=== PATIENT | female | born 1955 | race Caucasian/White ===

== ENCOUNTER 2017-09-19 11:00 | Inpatient (IN) | payer OTHER ==
--- NOTE | 2017-09-11 14:56 | HP ---
Admitting History and Physical - Primary Care Physician PCP: Tunde Cummings - Admission Chief Complaint: Left breast cancer History of Present Illness: 61 year old nulliparous postmenapausal female with personal H/O left breast cancer S/P left breast wide excision senetenel node biopsy 06/2016 final pathology showed 1 negative lymph node and an invasive ductal carcinoma 1.1cm free margins. She underwent intra op radiation and no external beam RT. mammoprint was high risk and only underwent 5 cycles of chemotherapy. She refused all endocrine therapy. She then was found to have new palpable density left lower outer aspect of her breast. She underwent mammogram and US and underwent left US core bx 5:00 which showed recurrent invasive ductal carcinoma. History Source: Patient Limitations to Obtaining History: No Limitations - Past Medical History Dermatology: Yes: Basal Cell, Melanoma - Past Surgical History Additional Past Surgical History: Right rotator cuff repair WE of melanoma right trunk and LLE exc of sessile polyp - Smoking History Smoking history: Never smoked - Alcohol/Substance Use Hx Alcohol Use: No Home Medications - Allergies Allergies/Adverse Reactions: Allergies Allergy/AdvReac Type Severity Reaction Status Date / Time amoxicillin trihydrate Allergy Vomiting Verified 06/21/16 10:13 [From Augmentin] azithromycin [From Zithromax] Allergy Vomiting Verified 06/21/16 10:13 ciprofloxacin [From Cipro] Allergy Vomiting Verified 06/21/16 10:13 ciprofloxacin HCl Allergy Vomiting Verified 06/21/16 10:13 [From Cipro] potassium clavulanate Allergy Vomiting Verified 06/21/16 10:13 [From Augmentin] Quinolones Allergy Vomiting Verified 06/21/16 10:13 - Home Medications Home Medications: Ambulatory Orders Cholecalciferol (Vitamin D3) [Vitamin D] 2,000 unit PO DAILY capsule 08/26/13 Family Disease History - Family Disease History Family Disease History: CA: Grandparent (maternal-breast cancer), Father ( bladder cancer) Physical Examination Constitutional: Yes: Well Nourished Breast(s): Yes: Other (excellent cosmetic results left breast partial mastectomy and sentenl node bx, typical scarring changes underneath her left breast wide excision. some scarring changes are present lower outer aspect of left breast S/O bx which showed recurrent breast cancer no axillary or supraclavicular adenopathy bilaterally) Problem List - Problems (1) Recurrent cancer of left breast Code(s): C50.912 - MALIGNANT NEOPLASM OF UNSPECIFIED SITE OF LEFT FEMALE BREAST Assessment/Plan Left nipple sparing total mastectomy ,sentenel node biopsy possible axillary dissection , lymphoscintogram and reconstruction
[2017-09-11 16:02] VITALS: BMI 20.7
[2017-09-19] MEDS ORDERED: GENTAMICIN SO4 80 MG/2 ML VIAL ONE (12:57)
[2017-09-19] MEDS ORDERED: ceFAZolin SODIUM 1 GM VIAL ONE ×2 (12:57→16:59)
[2017-09-19] MEDS ORDERED: SUCCINYLCHOLINE CHLORIDE 200 MG/10 ML VIAL ONE (14:03)
[2017-09-19] MEDS ORDERED: PROPOFOL 20 ML ONE (14:03)
[2017-09-19] MEDS ORDERED: MIDAZOLAM HCL 2 MG/2 ML SINGLE DOSE VIAL ONE ×3 (14:06)
[2017-09-19] MEDS ORDERED: BUPIVACAINE HCL/PF (5 MG/ML) 30 ML VIAL IJ ONE (14:34)
[2017-09-19] MEDS ORDERED: DEXAMETHASONE SOD PHOSPHATE/PF 10 MG/ML SDV ONE (14:34)
[2017-09-19] MEDS ORDERED: ISOSULFAN BLUE 10 MG/ML VIAL SQ ONE (14:44)
[2017-09-19] MEDS ORDERED: LIDOCAINE HCL 1%, 10 MG/ML (20ML VIAL) ONE (14:45)
[2017-09-19] MEDS ORDERED: ONDANSETRON 4 MG/2 ML VIAL IVPUSH PRN (15:14)
[2017-09-19] MEDS ORDERED: ACETAMINOPHEN 1000 MG/100 ML VIAL (NON FORMULARY) IVPB ONE (15:15)
[2017-09-19] MEDS ORDERED: oxyCODONE HCL 5 MG TABLET PO PRN (15:15)
[2017-09-19] MEDS ORDERED: ZOLPIDEM TARTRATE 5 MG TABLET PO PRN (16:15)
[2017-09-19] MEDS ORDERED: ACETAMINOPHEN 325 MG TABLET (FP) PO PRN (16:15)
[2017-09-19] MEDS ORDERED: ONDANSETRON 4 MG/2 ML VIAL ONE (17:02)
[2017-09-19] MEDS ORDERED: DEXAMETHASONE SOD PHOSPHATE 4 MG/1 ML VIAL ONE (17:02)
[2017-09-19] MEDS ORDERED: ePHEDrine SULFATE 50 MG/1 ML AMPULE ONE (17:06)
[2017-09-19] MEDS ORDERED: HYDROmorphone HCL/PF 1 MG/ML VIAL (FOR PYXIS CHARGING ONLY) ONE ×2 (17:32→17:47)
[2017-09-19] MEDS ORDERED: ROCURONIUM BROMIDE 50 MG/5 ML VIAL ONE (17:33)
[2017-09-19] MEDS ORDERED: ACETAMINOPHEN INJECTION 100 ML IVPB ONE ×2 (18:35→19:11)
[2017-09-19] MEDS ORDERED: NALOXONE HCL 0.4 MG/ML VIAL ONE (19:30)
[2017-09-19] MEDS: CEFAZOLIN 1 GM/D5W 1 GM/50 ML BAG IVPB SCH (22:22)
[2017-09-19] MEDS: oxyCODONE HCL 10 MG SUSTAINED ACTING TABLET PO SCH (22:23)
[2017-09-19] MEDS: ONDANSETRON 4 MG/2 ML VIAL IVPUSH PRN (23:28)
[2017-09-20] MEDS ORDERED: ONDANSETRON *ODT* 4 MG TABLET SL ONE (03:22)
[2017-09-20] MEDS: CEFAZOLIN 1 GM/D5W 1 GM/50 ML BAG IVPB SCH ×2 (03:30→19:25)
[2017-09-20] MEDS: ONDANSETRON 4 MG/2 ML VIAL IVPUSH PRN (05:05)
[2017-09-20] MEDS: oxyCODONE HCL 5 MG TABLET PO PRN ×2 (06:14→20:10)
--- NOTE | 2017-09-20 07:54 | OP ---
DATE OF OPERATION: 09/19/2017 PREOPERATIVE DIAGNOSIS: Recurrent left breast cancer, 6 o'clock overlapping region. POSTOPERATIVE DIAGNOSIS: Recurrent left breast cancer, 6 o'clock overlapping region. PROCEDURE PERFORMED: Left breast total nipple-sparing mastectomy with repeat left axillary sentinel lymph node biopsy and direct implant reconstruction. PRIMARY SURGEON: Awais Gutierrez MD UPPER MARKER: MARIOLA Bill Primary surgeon for the direct implant reconstruction on the left is Dr. Awais Bear, with his assistant research scientist MARIOLA Aragon. COMPLICATIONS: There were no complications. INDICATIONS: Briefly, the patient is a 62-year-old, nulliparous, postmenopausal with female of [place] descent. She has a family history with her maternal grandmother, who had breast cancer, and maternal aunt had ovarian cancer. She was diagnosed with a left breast lower outer quadrant breast cancer back in April 2016, which was a high-grade infiltrating ductal cancer. She us genetic panel testing at that time, which was negative. Her cancer at that time was ER/CT positive and HER-II/JERI negative. She us a left breast partial mastectomy and sentinel lymph node biopsy, and had 1 negative sentinel node. Her cancer was 1.1 cm, and she had intraoperative radiation, with a slight mastopexy closure. MammaPrint genomic profile showed a high risk luminal type, and she underwent 5 out of 6 cycles of CMF chemotherapy and refused endocrine therapy. She had been followed closely, but then felt a density now towards the lower aspect of the left breast and ultrasound confirmed an 8-mm density, which was biopsied on August 17, 2017, and came back as a recurrent infiltrating ductal cancer. MRI just showed the recurrent cancer in the left breast 6 o'clock region. The right breast was negative. The patient was advised on undergoing a mastectomy because of the previous radiation. She was seen by Plastic Surgery preoperatively, and it was decided to go forth with a nipple-sparing technique, with a direct implant reconstruction. The patient also was advised on undergoing a repeat sentinel lymph node biopsy. DESCRIPTION OF PROCEDURE: The patient was brought in for the procedure on September 19, 2017. She first underwent lymphoscintigraphy at [facility] and was brought to the [facility] area. In the holding area, site verification was made and informed consent was obtained. She was marked preoperatively by the plastic surgeon. The patient brought into the operating room and laid on the OR table in the supine position. Venodynes were placed on the lower extremities prior induction. She received 1 gram of Ancef prior to incision. The left breast was sterilely prepped and draped, along with the right, to allow for symmetry by Plastic Surgery. We did inject Lymphazurin Blue around the subareolar position. Massage was instituted. An incision was made just below the hair-bearing area of the left axilla. Although the radioactive dye did not travel well, the blue dye traveled easily to a blue node in the level 1 region in the left axilla and had a 10-second gamma count of 98. There was another specimen which was blue which was also sent as "sentinel lymph node number 2." Both of these were sent for frozen section, but only the first specimen was a lymph node. The second was just fibrous tissue. It was benign on frozen section. There were no other blue or hot nodes found. At this point, a nipple-sparing mastectomy was performed through an inframammary incision. About a 10-cm inframammary incision was made and the skin edges everted and the breast was retracted inferiorly using Charles clamps. The skin flap was raised using the PEAK radiofrequency device. We maintained thin flaps, especially inferiorly, since her cancer was fairly anterior, and the skin flap was raised superiorly to the level of the clavicle, medially to the level of the sternum, laterally to the level of the latissimus, and inferiorly below the level of the inframammary fold. The breast was taken down off the pectoralis major muscle from inferomedial to superolateral and completely removed intact. It was oriented with a long lateral suture and short superior suture, and weighed to allow for appropriate cosmetic result. A radiograph of the breast did not show the clip in question. A separate anterior margin was taken and was oriented with a suture to ymnor the biopsy cavity side, and sent separately in formalin as a specimen. On further inspection in the subcutaneous region, I did find an area of some scarring right underneath the needle biopsy site and on exploration the clip was in the subcutaneous tissue just underneath the skin, and this tissue was removed with the clip within it. Specimen radiograph showed the clip and this tissue was sent separately as "specimen with clip." A small separate sliver of tissue, just underneath this, anterior, underneath the skin, was sent separately as "clip anterior margin." There was also a small subcutaneous nodule felt, which was sent separately as "subcutaneous nodule." All of these were sent separately in formalin. Hemostasis was achieved. A retroareolar biopsy was taken which was negative. So the nipple was spared. At this point Dr. Bear became the primary surgeon and performed the left breast direct implant reconstruction. A subpectoral implant was placed and AlloDerm was sutured into the inferolateral aspect of the pectoralis major muscle to allow for the direct implant reconstruction. We did use the SPY skin perfusion device, which showed good perfusion of the skin. All wounds will be closed separately by Plastic Surgery. Two Ryne drains were placed around the left implant, one superiorly and one inferiorly, and brought through separate stab incisions in the lateral skin flap and secured in place using 3-0 nylon surgical. The drains were placed under bulb suction. The axillary wound was also closed by Plastic Surgery. The patient was extubated at the end of the case and placed in a surgical bra. She will be recovered and admitted postoperatively for postoperative pain and wound management. She did have a preoperative pectoral block placed to reduce postoperative pain. All sponge and needle counts were correct at the end of the case. Estimated blood loss was about 100 mL. She was hemodynamically stable throughout. AWAIS GUTIERREZ M.D. [id number]
[2017-09-20] MEDS: HEPARIN NA (PORCINE) 5,000 UNITS/ML 1ML VIAL SQ SCH ×2 (08:00→19:52)
[2017-09-20] MEDS ORDERED: ONDANSETRON *ODT* 4 MG TABLET SL PRN (08:44)
[2017-09-20 08:45] LABS: HEMATOCRIT 39.5 % (32.4-45.2); HEMOGLOBIN 13.7 GM/dl (10.7-15.3); MCH 30.8 pg (25.7-33.7); MCHC 34.8 g/dl (32.0-36.0); MEAN CELL VOLUME 88.7 fl (80-96); MEAN PLT VOLUME 7.1 fl (7.5-11.1); PLATELET COUNT 319 K/MM3 (134-434); RBC 4.46 M/mm3 (3.60-5.2); RDW 12.2 % (11.6-15.6); WHITE BLOOD COUNT 14.3 K/mm3 (4.0-10.8)
--- NOTE | 2017-09-20 08:51 | PN ---
Progress Note, Physician Chief Complaint: Recurrent left breast cancer S/P left total mastectomy sentenel node biopsy implant and alloderm reconstruction POD #1 History of Present Illness: Patient is OOB eating small amounts nausea from oxycodone but somewhat better this am - Current Medication List Current Medications: Active Medications Acetaminophen (Tylenol -) 650 mg PO Q4H PRN PRN Reason: FEVER Diazepam (Valium -) 5 mg PO BID [facility] Fentanyl (Sublimaze Injection -) 50 mcg IVPUSH [id number] PRN PRN Reason: PAIN-PACU ORDER X 4 DOSES ONLY Heparin Sodium (Porcine) (Heparin -) 5,000 unit SQ BID@0800,2000 [facility] Lactated Ringer's (Lactated Ringers Solution) 1,000 mls @ 75 mls/hr IV ASDIR GLO Dextrose/Sodium Chloride (D5-1/2ns -) 1,000 mls @ 100 mls/hr IV ASDIR [facility] Cefazolin Sodium (Ancef 1 Gm Premixed Ivpb -) 1 gm in 50 mls @ 100 mls/hr IVPB Q6H [facility] Last Admin: 09/20/17 03:30 Dose: 100 mls/hr Non-Formulary Medication (Digestive 8/L.Acidoph/Pectin [Digestive Enzymes Tablet ]) 1 each PO DAILY [facility] Ondansetron HCl (Zofran Injection) 4 mg IVPUSH Q6H PRN PRN Reason: NAUSEA AND/OR VOMITING Last Admin: 09/20/17 05:05 Dose: 4 mg Oxycodone HCl (Roxicodone -) 5 mg PO Q3H PRN PRN Reason: PAIN LEVEL 1-5 Last Admin: 09/20/17 06:14 Dose: 5 mg Oxycodone HCl (Roxicodone -) 10 mg PO Q3H PRN PRN Reason: PAIN LEVEL 6-10 Oxycodone HCl (Oxycontin -) 10 mg PO BID [facility] Stop: 09/22/17 15:16 Last Admin: 09/19/17 22:23 Dose: 10 mg Tramadol HCl (Ultram -) 50 mg PO Q8H PRN PRN Reason: PAIN LEVEL 4 - 6 Zolpidem Tartrate (Ambien -) 5 mg PO HS PRN PRN Reason: Insomnia - Objective Vital Signs: Vital Signs Temperature 98.6 F 09/20/17 06:00 Pulse Rate 76 09/20/17 06:00 Respiratory Rate 18 09/20/17 08:13 Blood Pressure 120/60 09/20/17 06:00 O2 Sat by Pulse Oximetry (%) 99 09/20/17 08:13 Constitutional: Yes: No Distress Breast(s): Yes: Other (Left skin flap viable tegaderm in place incision intact, minimal echymosis lateral breast , no Signs of infection, mary drains funtioning well) Problem List - Problems (1) Recurrent cancer of left breast Code(s): C50.912 - MALIGNANT NEOPLASM OF UNSPECIFIED SITE OF LEFT FEMALE BREAST Assessment/Plan cont IV antibiotic spirometry scds in bed Valium BID for pain Tramadol Q8 hour for pain prepare for discharge tomorrow
[2017-09-20] MEDS: diazePAM 5 MG TABLET PO SCH ×2 (09:44→23:09)
[2017-09-20] MEDS: traMADol HCL 50 MG TABLET PO PRN ×3 (09:44→23:09)
[2017-09-20] MEDS: oxyCODONE HCL 10 MG SUSTAINED ACTING TABLET PO SCH ×2 (10:00→22:31)
--- NOTE | 2017-09-20 10:58 | OP ---
DATE OF OPERATION: 09/19/2017 SURGEON: Awais Bear MD FRICTION PAINT MACHINE TENDER SURGEON: Matthias Denis PA-C This is a combined dictation with Dr. Awais Cummings for a left breast reconstruction. Dr. Cummings will dictate his portion under separate cover. This is the standard dictation for the left breast reconstruction only. OPERATIVE INDICATION: Patient was brought to the operating room by Dr. Awais Cummings for left breast mastectomy for recurrent carcinoma. The patient elected to undergo reconstruction with an implant, and the risks and benefits, surgical versus nonsurgical alternatives, as well as material complications have been described to the patient on multiple occasions preoperatively. The standard dictation applies for the left breast only. The patient had Contour Large Perforated AlloDerm Select Tissue Matrix placed into the left breast. She had a Natrelle Inspira Soft Touch breast implant, style SSF 520 mL placed. She had SPY intraoperative angiogram on the left breast, which showed good blood flow to the skin and nipple areolar complex. Dr. Cummings will dictate the rest of the procedure. There was no operation on the right breast. This is a left breast only reconstruction. OPERATIVE PROCEDURE IN DETAIL: The patient was taken to the operating room. After induction of general anesthesia in the supine position, both arms were extended and padded. Venodyne boots were placed. The entire chest wall was painted with ChloraPrep solution over its entire extent, and sterile drapes were placed in the usual fashion. The markings, which had been made in the standing position preoperatively, were reoutlined with the patient's knowledge. Time-out procedure was performed. Attention was turned by Dr. Cummings to the mastectomies. Left inframammary incisions were made and Dr. Cummings performed mastectomies. This will be dictated under separate cover. Upon completion of the mastectomy, the wounds were copiously irrigated and attention was turned to the left breast. A subpectoral dissection was begun on the right breast, superiorly from the second rib, medially to the sternal fibers, and down to the inframammary fold, elevating the pectoralis major muscle from its insertion. At this point, an 8.0 x 16.0 sheet of Contour Large Perforated AlloDerm Select Tissue Matrix was brought into the field and sutured superiorly along the pectoralis major muscle after rehydration. This was carried along the lateral mammary fold and down the side of the breast reconstruction. At this point, a [employer] myMedScoreira Soft Touch breast implant, style SSF 520 mL implant was chosen. The left breast tissue removed was gm. This implant was placed and then sutured with 3-0 Vicryl suture continued along the inframammary fold, completely covering the implant itself. After the implants were in place, the patient was injected with 10 mL of Isocyanide green dye and the Spy imaging system was brought into the field. The skin flowed to the left breast and the nipple areolar complex, and the entire skin flaps were evaluated and seen to be viable with good blood flow. A Patrice-Hughes drain was brought out through separate stab wound laterally. The Smart Infuser pump catheter was inserted medially and into the subpectoral position. The wound was closed symmetrically using 3-0 PDS suture on the deep tissue, 3-0 in a deep dermal fashion, and 4-0 in a subcuticular fashion. The wound was dressed sterilely with Mastisol and Steri-Strips with a surgical bra and a compression strap. The patient tolerated the procedure well. She was awakened, extubated and transferred to the recovery room in satisfactory condition. The addictions counselor assistant was present during the entire portion of the operation and closure. AWAIS BEAR M.D. [id number]
[2017-09-20] MEDS: LACTATED RINGERS SOLUTION 1,000 ML IV SCH (19:27)
[2017-09-20] MEDS: DEXTROSE 5%-0.45% SALINE 1,000 ML IV SCH (19:27)
[2017-09-20] MEDS: CEPHALEXIN MONOHYDRATE 500 MG CAPSULE (UD) PO SCH (21:27)
[2017-09-21 06:22] VITALS: BP 120/69; PULSE 75; TEMP 98
[2017-09-21] MEDS: traMADol HCL 50 MG TABLET PO PRN (07:42)
[2017-09-21] MEDS: HEPARIN NA (PORCINE) 5,000 UNITS/ML 1ML VIAL SQ SCH (07:50)
[2017-09-21] MEDS: oxyCODONE HCL 10 MG SUSTAINED ACTING TABLET PO SCH (09:24)
[2017-09-21] MEDS: diazePAM 5 MG TABLET PO SCH (09:24)
[2017-09-21] MEDS: CEPHALEXIN MONOHYDRATE 500 MG CAPSULE (UD) PO SCH (09:24)
--- NOTE | 2017-09-21 10:05 | DS ---
Physical Examination Vital Signs: Vital Signs Temperature 98.0 F 09/21/17 06:00 Pulse Rate 75 09/21/17 06:00 Respiratory Rate 18 09/21/17 08:12 Blood Pressure 120/69 09/21/17 06:00 O2 Sat by Pulse Oximetry (%) 97 09/21/17 08:12 Constitutional: Yes: No Distress Breast(s): Yes: Other (Left breast flap viable incision intact steristrips in place mary drain functioning well) Labs: CBC, BMP 09/20/17 08:15 Discharge Summary Reason For Visit: LT CA Condition: Good - Instructions Diet, Activity, Other Instructions: Post Operative Instructions - [facility] We hope your recovery will be uneventful. For those of you who have been given general anesthesia, there is a possibility you might have some lightheadedness and possibly nausea. It is important that each patient, especially those who have had general anesthesia, follow these instructions, please: 1. Do NOT operate a motor vehicle for 24 hours. 2. Do NOT drink any alcoholic beverages for 24 hours. 3. Do NOT take any sedatives, narcotics, or tranquilizers for 24 hours unless specifically ordered by your surgeon. 4. Do NOT undertake any strenuous exercise or outside activity for 24 hours unless specifically permitted by your surgeon. 5. Eat light foods that are easy to digest. If you have any problems with nausea and vomiting, lie down and rest. If it continues, call your surgeon. 6. Call your surgeon AT ONCE if you have problems with: a. Bleeding b. Urinating c. Excessive pain or drainage d. Numbness If any problems occur, call your physician first. If you cannot reach him/her, call the Ambulatory Surgery Unit at [phone], or the Emergency Room at . Follow up with Drs. Cummings / Liana in 7 days. Medication: Vicodin E-S OR Percocet 1-2 tablets every 4-6 hrs as needed for 5-7 days. Wound Care: Keep wound dry and clean for 48 hours. You may remove the dressing after 48 hours and may shower. Keep steri-strips in place until follow-up appointment No heavy lifting or strenuous activities. BREAST SURGERY INSTRUCTIONS Will Cummings M.D., KAYLI Cummings M.D., FACS Brennan Gaines M.D., FACS 1. Please call the office at to make a follow up appointment with your surgeon. This number can be also used for any urgent issues you may have. 2. Call us immediately if any of the following occur: *Bleeding from the incision or drain site (a small amount is normal) *Fever or chills *Redness and worsening tenderness around the surgical site *Drainage of pus or fluid from the incision or drain site 3. You may change the surgical dressing two (2) days after your surgery, and may shower then. If you have drains, you may shower after they have been removed, until then take a sponge bath. 4. It is normal for there to be some bruising and tenderness around the surgical site, and the breast may also be firm in this area. 5. Please wear a comfortable bra (sports or surgical bra) all day and all night until your first follow-up visit with your surgeon. 6. The pain medicine you have been prescribed may make you constipated; make sure you drink plenty of water. You may use an over the counter laxative if needed. 7. You may resume your normal diet after surgery, although you may want to avoid rich foods for the first twenty-four (24) hours after surgery. Alcoholic drinks should be avoided while taking the prescribed pain medicine. 8. You may resume normal activities as long as there is no discomfort, but do not do upper body exercises until after your follow-up appointment. Do not lift anything heavier than a large phone book. You may resume driving once you have stopped taking the prescribed pain medicine and feel comfortable doing arm movements. WEAR BRA, NO SHOWER, EMPTY AND RECORD MARY OUTPUT TWO TO THREE TIMES DAILY Referrals: Tunde Cummings MD [Staff Physician] - Prieto Bear MD [Staff Physician] - Disposition: HOME - Home Medications Comprehensive Discharge Medication List: Ambulatory Orders Cholecalciferol (Vitamin D3) [Vitamin D] 2,000 unit PO DAILY capsule 08/26/13 Calcium Carb/Vitamin D3/Vit K1 [Citracal Soft Chew] 1 each PO DAILY 09/11/17 Digestive 8/L.acidoph/Pectin [Digestive Enzymes Tablet] 1 each PO DAILY Cefadroxil 500 mg PO BID #20 capsule 09/21/17 Diazepam [Valium] 5 mg PO Q8H PRN #20 tablet MDD 3 09/21/17 Oxycodone HCl/Acetaminophen [Percocet 5-325 mg Tablet] 1 - 2 tab PO Q6H PRN #20 tab MDD 6 09/21/17
--- NOTE | 2017-09-21 10:07 | PN ---
Progress Note, Physician Chief Complaint: recurrent left breast cancer S/P left total mastectomy sentenel node biopsy implant alloderm POD #2 - Current Medication List Current Medications: Active Medications Acetaminophen (Tylenol -) 650 mg PO Q4H PRN PRN Reason: FEVER Last Admin: 09/21/17 09:24 Dose: 650 mg Cephalexin HCl (Keflex -) 500 mg PO BID [facility] Last Admin: 09/21/17 09:24 Dose: 500 mg Diazepam (Valium -) 5 mg PO BID [facility] Last Admin: 09/21/17 09:24 Dose: 5 mg Fentanyl (Sublimaze Injection -) 50 mcg IVPUSH [id number] PRN PRN Reason: PAIN-PACU ORDER X 4 DOSES ONLY Heparin Sodium (Porcine) (Heparin -) 5,000 unit SQ BID@0800,2000 [facility] Last Admin: 09/21/17 07:50 Dose: 5,000 unit Lactated Ringer's (Lactated Ringers Solution) 1,000 mls @ 75 mls/hr IV ASDIR [facility] Last Admin: 09/20/17 19:27 Dose: Not Given Dextrose/Sodium Chloride (D5-1/2ns -) 1,000 mls @ 100 mls/hr IV ASDIR [facility] Last Admin: 09/20/17 19:27 Dose: Not Given Non-Formulary Medication (Digestive 8/L.Acidoph/Pectin [Digestive Enzymes Tablet ]) 1 each PO DAILY [facility] Ondansetron HCl (Zofran Injection) 4 mg IVPUSH Q6H PRN PRN Reason: NAUSEA AND/OR VOMITING Last Admin: 09/20/17 05:05 Dose: 4 mg Ondansetron HCl (Zofran Odt -) 4 mg SL Q8H PRN PRN Reason: NAUSEA AND/OR VOMITING Oxycodone HCl (Roxicodone -) 5 mg PO Q3H PRN PRN Reason: PAIN LEVEL 1-5 Last Admin: 09/20/17 20:10 Dose: 5 mg Oxycodone HCl (Roxicodone -) 10 mg PO Q3H PRN PRN Reason: PAIN LEVEL 6-10 Last Admin: 09/21/17 09:23 Dose: 10 mg Oxycodone HCl (Oxycontin -) 10 mg PO BID [facility] Stop: 09/22/17 15:16 Last Admin: 09/21/17 09:24 Dose: 10 mg Tramadol HCl (Ultram -) 50 mg PO Q8H PRN PRN Reason: PAIN LEVEL 4 - 6 Last Admin: 09/21/17 07:42 Dose: 50 mg Zolpidem Tartrate (Ambien -) 5 mg PO HS PRN PRN Reason: Insomnia - Objective Vital Signs: Vital Signs Temperature 98.0 F 09/21/17 06:00 Pulse Rate 75 09/21/17 06:00 Respiratory Rate 18 09/21/17 08:12 Blood Pressure 120/69 09/21/17 06:00 O2 Sat by Pulse Oximetry (%) 97 09/21/17 08:12 Constitutional: Yes: No Distress (Left breast flap viable no infection steristrips in place tegaderm in place mary srains functioning) Labs: CBC, BMP 09/20/17 08:15 Problem List - Problems (1) Recurrent cancer of left breast Code(s): C50.912 - MALIGNANT NEOPLASM OF UNSPECIFIED SITE OF LEFT FEMALE BREAST Assessment/Plan Dishcarge patient home today follow up one week Dr Cummings and Dr Bear Cefadroxil bid 10 days, Percocet and valium prn
--- NOTE | 2017-09-21 13:07 | OPR ---
DATE OF OPERATION: 09/19/2017 SURGEON: Awais Bear MD DECKHAND SURGEON: Matthias Denis PA-C This is a combined dictation with Dr. Awais Cummings for a left breast reconstruction. Dr. Cummings will dictate his portion under separate cover. OPERATIVE INDICATION: Patient was brought to the operating room by Dr. Awais Cummings for left breast mastectomy for recurrent carcinoma. The patient elected to undergo reconstruction with an implant, and the risks and benefits, surgical versus nonsurgical alternatives, as well as material complications have been described to the patient on multiple occasions preoperatively. OPERATIVE PROCEDURE IN DETAIL: The patient was taken to the operating room. After induction of general anesthesia in the supine position, both arms were extended and padded. Venodyne boots were placed. The entire chest wall was painted with ChloraPrep solution over its entire extent, and sterile drapes were placed in the usual fashion. The markings, which had been made in the standing position preoperatively, were reoutlined with the patient's knowledge. Time-out procedure was performed. Attention was turned by Dr. Cummings to the mastectomies. Left inframammary incisions were made and Dr. Cummings performed mastectomies. This will be dictated under separate cover. Upon completion of the mastectomy, the wounds were copiously irrigated and attention was turned to the left breast. A subpectoral dissection was begun on the right breast, superiorly from the second rib, medially to the sternal fibers, and down to the inframammary fold, elevating the pectoralis major muscle from its insertion. At this point, an 8.0 x 16.0 sheet of Contour Large Perforated AlloDerm Select Tissue Matrix was brought into the field and sutured superiorly along the pectoralis major muscle after rehydration. This was carried along the lateral mammary fold and down the side of the breast reconstruction. At this point, a Natrelle Inspira Soft Touch breast implant, style SSF 520 mL implant was chosen. The left breast tissue removed was 573 gm. This implant was placed and then sutured with 3-0 Vicryl suture continued along the inframammary fold, completely covering the implant itself. After the implants were in place, the patient was injected with 10 mL of Isocyanide green dye and the Spy imaging system was brought into the field. The skin flowed to the left breast and the nipple areolar complex, and the entire skin flaps were evaluated and seen to be viable with good blood flow. A Patrice-Hughes drain was brought out through separate stab wound laterally. The Smart Infuser pump catheter was inserted medially and into the subpectoral position. The wound was closed symmetrically using 3-0 PDS suture on the deep tissue, 3-0 in a deep dermal fashion, and 4-0 in a subcuticular fashion. The wound was dressed sterilely with Mastisol and Steri-Strips with a surgical bra and a compression strap. The patient tolerated the procedure well. She was awakened, extubated and transferred to the recovery room in satisfactory condition. The statistical assistant was present during the entire portion of the operation and closure. AWAIS BEAR M.D. [id number]
--- NOTE | 2017-09-22 16:05 | PATH ---
Surgical Pathology Report Patient Name: NOHEMY VILLALOBOS Med. Rec. #: [id number] /Age/Gender: 1955 (Age: 62) / F Account: [id number] Location: [facility] Taken: 09/19/2017 Received: 09/19/2017 Reported: 09/22/2017 Physicians: Tunde Cummings M.D. Specimen(s) Received A: LEFT BREAST SENTINEL NODE. FS#1 B: LEFT BREAST SENTINEL NODE. FS#2 C: LEFT BREAST RETROAREOLAR. FS#3 D: LEFT BREAST MASTECTOMY E: LEFT BREAST ANTERIOR MARGIN F: LEFT BREAST SUBCUTANEOUS NODULE G: LEFT BREAST ANTERIOR CLIP MARGIN H: LEFT BREAST SPECIMEN WITH CLIP Clinical History Invasive left breast 6:00 anterior recurrence Intraoperative Consult Diagnosis A. Left breast sentinel node #1, frozen section: One negative lymph node. B. Left breast sentinel node #2, frozen section: Fibrofatty tissue having foreign body granulomas. No lymph node tissue is identified. C. Left retroareolar, frozen section: Negative for malignancy. Kadie Kim M.D., 09/20/17 Final Diagnosis A. LEFT AXILLARY SENTINEL NODE #1, EXCISION: ONE BENIGN LYMPH NODE (0/1) BY STANDARD HEMATOXYLIN AND EOSIN STAIN (MULTIPLE LEVELS EXAMINED). B. LEFT AXILLARY SENTINEL NODE #2, EXCISION: BENIGN FIBROFATTY TISSUE WITH CHANGES CONSISTENT WITH PRIOR EXCISION SITE NO LYMPH NODE IDENTIFIED. C. LEFT BREAST, RETROAREOLAR BIOPSY: BENIGN BREAST TISSUE WITH FIBROCYSTIC CHANGES INCLUDING USUAL DUCTAL HYPERPLASIA (UDH), STROMAL FIBROSIS, AND DUCTAL DILATATION. D. LEFT BREAST, NIPPLE SPARING MASTECTOMY: BENIGN BREAST TISSUE WITH FIBROCYSTIC CHANGES INCLUDING USUAL DUCTAL HYPERPLASIA (UDH), STROMAL FIBROSIS, DUCTAL DILATATION, AND CYSTIC APOCRINE METAPLASIA. CHANGES CONSISTENT WITH PRIOR EXCISION SITE PRESENT. NO CARCINOMA IDENTIFIED. E. LEFT BREAST, ANTERIOR MARGIN, EXCISION: POORLY DIFFERENTIATED INVASIVE DUCTAL CARCINOMA, JAVIER GRADE 3 OF 3 (TUBULE SCORE 3 OF 3, NUCLEAR GRADE 3 OF 3, MITOTIC SCORE 3 OF 3, TOTAL 9 OF 9), MEASURING 0.4 CM IN GREATEST DIMENSION, AND PRESENT IN ONE OF 4 BLOCKS. INVASIVE CARCINOMA FOCALLY ABUTS THE ANTERIOR MARGIN. NO LYMPH VASCULAR INVASION IDENTIFIED. NO DUCTAL CARCINOMA IN SITU (DCIS) IDENTIFIED. F. LEFT BREAST, SUBCUTANEOUS NODULE, EXCISION: POORLY DIFFERENTIATED INVASIVE DUCTAL CARCINOMA, JAVIER GRADE 3 OF 3 (TUBULE SCORE 3 OF 3, NUCLEAR GRADE 3 OF 3, MITOTIC SCORE 3 OF 3, TOTAL 9 OF 9), MEASURING 0.6 CM IN GREATEST DIMENSION (CARINOMA MEASURED 0.9 CM ON PRIOR CORE BIOPSY). INVASIVE CARCINOMA EXTENDS TO THE INKED MARGINS. NO LYMPH VASCULAR INVASION IDENTIFIED. NO DUCTAL CARCINOMA IN SITU (DCIS) IDENTIFIED. G. LEFT BREAST, ANTERIOR MARGIN, EXCISION: BENIGN BREAST TISSUE. H. LEFT BREAST, SPECIMEN WITH CLIP, EXCISION: FIBROFATTY TISSUE WITH INVOLVEMENT BY INVASIVE CARCINOMA, CONFIRMED WITH AE1/3 IMMUNOSTAIN. Comment: This case was discussed with Dr. Tunde Cummings on September 22, 2017. See prior specimens [id number], [id number], and recent Slide Review [id number]. Comments Breast Invasive Carcinoma: Surgical Pathology Cancer Case Summary Based on AJCC/UICC TNM, 7th edition Procedure _X__ Total mastectomy (nipple sparing) Lymph Node Sampling (select all that apply) (required only if lymph nodes are present in the specimen) _X__ [place] lymph node(s) Specimen Laterality _X__ Left Tumor Size: Size of Largest Invasive Carcinoma Greatest dimension of largest focus of invasion over 1 mm: 9 mm Tumor Focality _X__ Single focus of invasive carcinoma Macroscopic and Microscopic Extent of Tumor Skin _X__ Invasive carcinoma does not invade into the dermis or epidermis Nipple _X__ Not applicable (excisions less than total mastectomy) Histologic Type of Invasive Carcinoma : _X__ Invasive carcinoma of no special type (ductal, not otherwise specified) Histologic Grade: (Javier Histologic Score) Tubular Differentiation _X__ Score 3 Nuclear Pleomorphism _X__ Score 3 Mitotic Rate _X__ Score 3 Overall Grade _X__ Grade 3: scores of 8 or 9 (poorly differentiated) Margins _X__ Margin(s) positive for invasive carcinoma: ANTERIOR Lymph-Vascular Invasion _X__ Not identified Lymph Nodes Total number of lymph nodes examined (sentinel and nonsentinel): 1 Number of sentinel lymph nodes examined: 1 Number of lymph nodes with macrometastases ( > 2 mm): 0 Number of lymph nodes with micrometastases (>0.2 mm to 2 mm and/or >200cells):0 Number of lymph nodes with isolated tumor cells (=0.2 mm and =200 cells): 0 Extranodal Extension _X__ Not applicable Pathologic Staging (pTNM) Primary Tumor (Invasive Carcinoma): rpT1b Regional Lymph Nodes (pN): rpN0(sn) Biomarker Studies Results of ER and LA studies performed on this specimen (block F) at [facility] are as follows: ER (clone [id number] mouse monoclonal antibody by [employer]): >95 % nuclear staining with strong intensity (Positive). LA (clone16 mouse monoclonal antibody by [employer]) : ~10% nuclear staining with strong intensity (Positive). Results of Her2 studies will be reported separately in an addendum. Positive and negative controls (internal if applicable) show appropriate results. Formalin fixation times are within current ASCO/CAP recommendations for ER, LA and Her2 testing. Electronically Signed Kody Garcia M.D. Addendum Reported: 09/27/2017 Addendum Diagnosis Results of Her2 (IHC) & Ki-67 studies performed on block "F" at [place], [place] ([id number]) are as follows: Her2 IHC (EP3 from [employer], formerly known as [id number], using [employer] Polymer Refine detection kit): 1+ (Negative) Ki-67: ~12% (Low proliferative index) Positive and negative controls (internal if applicable) show appropriate results. Yolanda Soriano M.D. Gross Description A. Received fresh for frozen section labeled "left breast sentinel node #1," is a 0.6 x 0.4 x 0.2 cm portion of red narayanan tissue. A frozen section is performed on the specimen. The frozen section residue is entirely submitted in one cassette. B. Received fresh labeled "left breast sentinel node #2," is a 0.8 x 0.5 x 0.2 cm portion of red-narayanan tissue. A frozen section is performed on the specimen. The frozen section residue is entirely submitted in one cassette. C. Received fresh labeled "left breast retroareolar," is a 1.2 x 1.0 x 0.2 cm portion of solis-black and focally yellow-narayanan tissue. A frozen section is performed on the tissue. The frozen section residue is entirely submitted in one cassette. D. Received in formalin, labeled "left breast mastectomy," is a 456 gram, 18.0 x 15.5 x 4.5 cm. left mastectomy specimen with a short suture marking the superior aspect and a long suture marking the lateral aspect of the specimen, per the surgeon. There is no skin or nipple present. The deep margin is inked black and the anterior soft tissue margin is inked blue. The specimen is serially sectioned from medial to lateral. Sectioning reveals a 2.5 x 2.0 x 1.5 cm firm, cystic lesion, possibly consistent with a previous biopsy cavity in the lower outer quadrant (LOQ). The lesion is surrounded by firm fibrous tissue. The lesion is at 0.9 cm from the anterior soft tissue margin and 2 cm from the deep margin. The remaining breast parenchyma displays abundant dense, white, focally firm fibrous tissue. Mash Grinder sections are submitted in cassettes as follows: 1-2-full face, bisected section of previous biopsy cavity (with anterior soft tissue margin); 5-7-fjzzunharv fibrous tissue surrounding biopsy cavity (each with anterior soft tissue margin); 2-3-ydlxzfaflb anterior soft tissue margin; 2-73-hsuykybiir LOQ tissue; 11-12-upper outer quadrant; 13-14-upper inner quadrant; 15-16-lower inner quadrant; 17-deep margin. Time to formalin fixation: 1 hour and 42 minutes Total formalin fixation time: Approximately 22 hours. E. Received in formalin labeled "left breast anterior margin," is a 2.7 x 1.4 x 0.6 cm portion of fibroadipose tissue with a suture marking the biopsy cavity site, per the surgeon. The new margin is inked blue and the specimen is serially sectioned. The specimen is entirely and sequentially submitted in 4 cassettes. F. Received in formalin labeled "left breast subcutaneous nodule," is a 0.9 x 0.4 x 0.4 cm narayanan-yellow, irregular, unoriented portion of fibroadipose tissue. The specimen is inked in blue, bisected and entirely submitted in one cassette. G. Received in formalin labeled "left breast anterior clip margin," is a 1.0 x 0.6 x 0.4 cm narayanan-yellow, irregular, unoriented portion of fibroadipose tissue. There is no clip identified grossly. The specimen is serially sectioned and entirely submitted in one cassette. H. Received in formalin labeled "left breast specimen with clip," is a 0.9 x 0.3 x 0.3 cm narayanan-yellow, irregular portion of fibroadipose tissue. The specimen displays a marks metallic clip. The specimen is submitted in toto in one cassette. 09/20/201709/20/2017
== END 2017-09-21 12:15 | disposition home or self-care (01) | DRG 578 ==
LOC: FM/S 11:52
PROVIDERS: ADMIT Surgery Surgical Oncology; ATTEND Surgery Surgical Oncology
PROC: 0HTU0ZZ Resection of Left Breast, Open Approach (ICD-10-PCS; principal; 2017-09-19 17:12)
PROC: 0HRUXKZ (ICD-10-PCS; 2017-09-19 17:12)
PROC: 07B60ZX Excision of Left Axillary Lymphatic, Open Approach, Diagnostic (ICD-10-PCS; 2017-09-19 17:12)
DX: C50.812 Malignant neoplasm of overlapping sites of left female breast (principal); N95.9 Unspecified menopausal and perimenopausal disorder; Z80.3 Family history of malignant neoplasm of breast; Z80.52 Family history of malignant neoplasm of bladder
CPT/HCPCS: 36415; 78195-TC; 85027; 88305-TC; 88307-TC; 88331-TC; 94010; 94760; A9541; J1644

== ENCOUNTER 2017-11-30 09:24 | Day surgery (SDC) | payer OTHER ==
[2017-11-21 13:51] VITALS: BMI 21.6
[2017-12-01 06:47] VITALS: BP 92/49; PULSE 57; TEMP 98.4
== END 2017-12-01 10:30 | disposition home or self-care (01) ==
LOC: FASU 09:24 → FM/S 15:20 → FASU 12-01 10:30
PROVIDERS: ATTEND Surgery Surgical Oncology
PROC: 0HBU0ZZ Excision of Left Breast, Open Approach (ICD-10-PCS; principal; 2017-11-30)
PROC: 0HUU0JZ Supplement Left Breast with Synthetic Substitute, Open Approach (ICD-10-PCS; 2017-11-30)
PROC: 0HHU0NZ Insertion of Tissue Expander into Left Breast, Open Approach (ICD-10-PCS; 2017-11-30)
DX: C50.912 Malignant neoplasm of unspecified site of left female breast (principal); M95.4 Acquired deformity of chest and rib
CPT/HCPCS: 88300-TC; 88304-TC; 88307-TC; 94010; 94760

== ENCOUNTER 2019-01-24 06:04 | Day surgery (SDC) | payer OTHER ==
[2019-01-17 12:52] VITALS: BMI 23.1
[2019-01-24] MEDS ORDERED: MIDAZOLAM HCL 2 MG/2 ML SINGLE DOSE VIAL ONE (06:44)
[2019-01-24] MEDS ORDERED: PROPOFOL 20 ML ONE ×3 (06:46→08:57)
[2019-01-24] MEDS ORDERED: LIDOCAINE HCL/PF 2% SDV 5ML VIAL ONE ×2 (06:47→08:57)
[2019-01-24] MEDS ORDERED: DEXAMETHASONE SOD PHOSPHATE 4 MG/1 ML VIAL ONE ×2 (06:47→08:57)
[2019-01-24] MEDS ORDERED: ONDANSETRON 4 MG/2 ML VIAL ONE ×2 (06:47→08:57)
[2019-01-24] MEDS ORDERED: KETOROLAC TROMETHAMINE 30 MG/1 ML VIAL ONE (06:47)
[2019-01-24] MEDS ORDERED: SUCCINYLCHOLINE CHLORIDE 200 MG/10 ML VIAL ONE (06:49)
[2019-01-24] MEDS ORDERED: ceFAZolin SODIUM 1 GM VIAL ONE (07:05)
[2019-01-24] MEDS ORDERED: oxyCODONE HCL 5 MG TABLET PO PRN ×2 (07:05)
[2019-01-24] MEDS ORDERED: ONDANSETRON 4 MG/2 ML VIAL IVPUSH PRN (07:05)
[2019-01-24] MEDS ORDERED: GENTAMICIN SO4 80 MG/2 ML VIAL ONE (07:05)
[2019-01-24] MEDS ORDERED: LACTATED RINGERS SOLUTION 1,000 ML IV SCH (07:15)
[2019-01-24] MEDS ORDERED: LIDOCAINE 1%/EPI 1:100000 (20 ML MULTI DOSE VIAL) ONE (07:27)
[2019-01-24] MEDS ORDERED: BUPIVACAINE HCL/PF 2.5 MG/ML - 30 ML VIAL IJ ONE (07:27)
[2019-01-24] MEDS ORDERED: VANCOMYCIN 1,000 MG VIAL (RESTRICTED TO ID ONLY) ONE ×2 (08:45→08:47)
[2019-01-24] MEDS ORDERED: ePHEDrine SULFATE 50 MG/1 ML AMPULE ONE (08:58)
[2019-01-24] MEDS ORDERED: ROCURONIUM BROMIDE 50 MG/5 ML VIAL ONE (09:01)
[2019-01-24] MEDS ORDERED: LIDOCAINE 1%/EPI 1:100000 (50 ML MULTI DOSE VIAL) INF ONE (09:15)
--- NOTE | 2019-01-24 09:57 | OP ---
Operative Note - Note: Operative Date: 01/24/19 Pre-Operative Diagnosis: left breast Cancer Operation: removal of left breast tissue child specialist with implant exchange Post-Operative Diagnosis: Same as Pre-op Surgeon: Prieto Bear Information Assurance Officer: Brisa Judd Anesthesiologist/BENCH MOLDER APPRENTICE: Dejon Mg Anesthesia: General Specimens Removed: left breast tissue child specialist Estimated Blood Loss (mls): 10 Fluid Volume Replaced (mls): 1,000 Operative Report Dictated: Yes
--- NOTE | 2019-01-24 09:58 | SURG ---
Surgery Railroad Car Checker Note Railroad Car Checker: Brisa Judd PA-C Date of Service: 01/24/19 Diagnosis: left breast cancer Procedure: removal of left breast tissue dental service chief with exchange for implant I was present for the entirety of the operative procedure. For further detail, please refer to operative report. Visit type - Case Type Case Type: Scheduled - Emergency Emergency Visit: No - New patient This patient is new to me today: Yes Date on this admission: 01/24/19
[2019-01-24 11:05] VITALS: TEMP 97.4
[2019-01-24 11:46] VITALS: BP 122/68; PULSE 81
--- NOTE | 2019-01-25 02:03 | OP ---
DATE OF OPERATION: 01/24/2019 SURGEON: Awais Bear MD STEAMER TENDER: Brisa Judd PA-C PREOPERATIVE DIAGNOSES: 1. 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 2. Asymmetry of reconstructed chest wall. 3. Personal history of breast carcinoma. POSTOPERATIVE DIAGNOSES: 1. 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 2. Asymmetry of reconstructed chest wall. 3. Personal history of breast carcinoma. OPERATIVE PROCEDURE: 1. Capsulectomy, removal of left breast implant device. 2. Replacement of breast implant device with silicone gel implant. OPERATIVE INDICATIONS: Patient is a patient who had previously undergone left breast mastectomy after having a breast cancer on the left breast with subsequent recurrence and unclear margins. She required surgical excision on multiple occasions and had a long linear scar in the lower portion of the breast. The risks and benefits of surgical versus nonsurgical alternatives as well as the material complications were described to the patient on multiple occasions preoperatively for this procedure, including today in the holding area where a full discussion was carried out regarding the procedure with the patient and nursing staff in attendance. The patient's questions were asked and answered preoperatively and we began the procedure. OPERATIVE PROCEDURE IN DETAIL: The patient was taken to the operating room. After induction of general anesthesia in the supine position, both arms were raised and padded. Venodyne boots were placed. The entire chest wall was prepped with ChloraPrep solution over its entire extent. At this point, attention was turned to the mastectomy scar in the left lower portion of the breast. This was injected with 1% local lidocaine anesthesia and 1:100,000 epinephrine. After allowing topical anesthesia and hemostasis, the incision was made down through the skin and subcutaneous tissue, through the subcutaneous tissue, down to the underlying capsule. The capsule was then incised along the course of the incision and the implant was removed. This was sent for pathologic diagnosis. I also performed a capsulotomy by incising the capsule and removing portions of the capsule, which were sent for pathologic diagnosis. After copious irrigation of the wound with both saline and triple antibiotic solution, a capsulotomy was performed in the superior portion of the upper pole of the breast. This was carried out superiorly in order to elevate the tissues to adequately match the opposite, unaffected breast, which was large and ptotic. The implant chosen was a Natrelle Inspira SLRP low-profile plus device. This volume was 540 mL in total. This implant was then placed into the retropectoral pocket and a new site superiorly under the muscularis portion of the muscle. Once this was positioned, good shape and contour, and symmetry was seen in the sitting position. The wounds were then advanced and closed upon themselves using 3-0 PDS suture on the deep tissue and capsule, 3-0 in the deep dermal fashion, and a third layer with 3-0 V-Loc suture Monoderm in a subcuticular fashion. Dry sterile dressings with Dermabond, Steri-Strips, and a compressive dressing with a surgical bra was placed. Patient was awakened, extubated, and transferred to the recovery room in satisfactory condition. AWAIS BEAR M.D. [id number]
--- NOTE | 2019-01-28 17:38 | PATH ---
Surgical Pathology Report Patient Name: NOHEMY VILLALOBOS [facility]. Rec. #: [id number] /Age/Gender: 1955 (Age: 63) / F Account: [id number] Location: [facility] AMBULATORY Taken: 01/24/2019 Received: 01/24/2019 Reported: 01/28/2019 Physicians: Prieto Bear Specimen(s) Received A: LEFT BREAST TISSUE RESERVATION SALES AGENT B: LEFT BREAST CAPSULE Clinical History Left breast cancer and recurrent with mastectomy Final Diagnosis A. BREAST TISSUE RESERVATION SALES AGENT, LEFT, REMOVAL: FOREIGN BODY, CONSISTENT WITH BREAST TISSUE RESERVATION SALES AGENT. MACROSCOPIC DIAGNOSIS. B. BREAST CAPSULE, LEFT, EXCISION: BENIGN DENSE FIBROUS TISSUE CONSISTENT WITH FIBROUS CAPSULE. Electronically Signed Yolanda Soriano M.D. Gross Description A. Received in formalin labeled "left breast tissue internship," is a 14.0 x 11.5 x 4.5 cm narayanan foreign body, consistent with a breast tissue internship. No soft tissue is present. No sections are submitted, gross only. B. Received in formalin labeled "left breast capsule," is a 1.0 x 0.3 x 0.1 cm narayanan portion of fibrous tissue, consistent with a portion of fibrous capsule. The specimen is submitted in toto in one cassette. 01/25/2019 [facility]01/25/2019
== END 2019-01-24 11:30 | disposition home or self-care (01) ==
LOC: FASU 06:04
PROVIDERS: ATTEND Plastic Surgery
PROC: 0HWU0JZ Revision of Synthetic Substitute in Left Breast, Open Approach (ICD-10-PCS; principal; 2019-01-24 08:59)
DX: M95.4 Acquired deformity of chest and rib (principal); Z90.12 Acquired absence of left breast and nipple; B85.3 Phthiriasis; N65.1 Disproportion of reconstructed breast
CPT/HCPCS: 88300-TC; 88304-TC; 94760